=== PATIENT | female | born 1945 | race Caucasian/White ===

== ENCOUNTER 2016-09-23 05:20 | Observation (INO) | payer MEDICARE ==
[2016-09-18 14:57] LABS: BASOPHILS 0.2 %; BASOPHILS ABSOLUTE 0.01 10/3/uL (0.0-0.16); EOSINOPHILS 0.9 %; EOSINOPHILS ABSOLUTE 0.06 10/3/uL (0.0-0.53); HEMOGLOBIN 10.9 g/dL (12.0-16.0); IMMATURE GRANULOCYTES 0.2 %; IMMATURE GRANULOCYTES ABSOLUTE 0.01 10/3/uL (0.0-0.11); LYMPHOCYTES 28.1 %; LYMPHOCYTES ABSOLUTE 1.81 10/3/uL (0.67-4.30); MEAN CORPUS HGB CONC 31.2 g/dL (32.0-36.0); MEAN PLATELET VOLUME 9.4 fL (9.2-13.0); MONOCYTES 11.3 %; MONOCYTES ABSOLUTE 0.73 10/3/uL (0.21-1.20); NEUTROPHILS 59.3 %; NEUTROPHILS ABSOLUTE 3.82 10/3/uL (2.02-8.40); RBC DISTRIBUTION WIDTH 15.5 % (12.0-16.0); RED CELL COUNT 4.73 10/6/uL (4.0-5.6); WHITE BLOOD CELLS 6.4 10/3/uL (4.5-10.5)
[2016-09-18 14:59] LABS: HEMATOCRIT 34.9 % (36.0-48.0)
[2016-09-18 15:00] LABS: MANUAL DIFF NO %; MEAN CORPUSCULAR VOLUME 73.8 fL (80-100); PLATELET COUNT 346 10/3/uL (150-400)
[2016-09-18 15:14] LABS: BUN (BLOOD UREA NITROGEN) 9 MG/DL (6-23); CALCIUM, SERUM 9.6 MG/DL (8.5-10.4); CHLORIDE, SERUM 103 MMOL/L (96-112); CO2 (CARBON DIOXIDE) 29 MMOL/L (24-34); CREATININE 0.95 MG/DL (0.55-1.02); GFR AFRICAN AMERICAN 71 ML/MIN (>=60); GFR NON AFRICAN AMERICAN 61 ML/MIN (>=60); GLUCOSE, SERUM 98 MG/DL (60-99); SGOT(AST) 16 U/L (5-40); SGPT(ALT) 24 U/L (5-65); SODIUM, SERUM 137 MMOL/L (135-148)
[2016-09-18 15:16] LABS: A/G RATIO 1.2 (0.7-1.9); ALBUMIN 3.8 G/DL (3.5-5.0); ALKALINE PHOSPHATASE 106 U/L (45-117); GLOBULIN 3.2 G/DL (2.5-4.1); POTASSIUM, SERUM 4.7 MMOL/L (3.5-5.3); TOTAL BILIRUBIN 0.4 MG/DL (0-1.2)
--- NOTE | ~2016-09-23 | OP ---
Record Of Operation [facility] [address] [place]. [address] NAME: DANIEL RODRIGUEZ : 49 STATUS : ADM Adeel PAT#: [id number] AGE: 71 ADM/REG DATE : 09/23/16 MR#: [id number] REPORT SERV DATE: 09/23/16 DICTATED BY: PARMINDER PRIDE DATE: 09/23/16 REPORT STATUS : Draft TRANSCRIBED BY: MODSwati DATE: 09/23/16 DATE OF PROCEDURE: 09/23/2016 PREOPERATIVE DIAGNOSIS: Graves disease with massive goiter bilaterally. POSTOPERATIVE DIAGNOSIS: Graves disease with massive goiter bilaterally. PROCEDURE: Total thyroidectomy. SURGEON: Parminder Pride M.D. ANESTHESIA: General. ESTIMATED BLOOD LOSS: 20 mL. DETAILS OF PROCEDURE: The patient arrived in the operating suite and was placed on the table in supine position. General anesthesia was obtained via an endotracheal tube. The patient was appropriately positioned. Neck and upper chest were prepped and draped in a sterile manner. A cervical collar incision was performed. Subplatysmal flaps were elevated with blunt dissection and cautery. Strap muscles were split in the midline. A plane of dissection was created between the right thyroid lobe which was very large, extending far posteriorly to the overlying strap muscles. Middle thyroid vein was divided with the LigaSure. The superior pole vessels were isolated and divided with the LigaSure between clips with care to avoid injury to the external branch of the superior laryngeal nerve. The inferior thyroid veins anteriorly were divided with the LigaSure allowing the right lobe to be delivered into the operative field. The inferior parathyroid and the superior parathyroid were carefully protected maintaining dissection anteromedial to the blood supply. The recurrent nerve was identified, and dissection was maintained very meticulously anterior to the course of the recurrent nerve dividing small vessels between clips and silk ties allowing the right lobe to be rotated well anteromedial to the course of the nerve where it was then divided from the pretracheal fascia with LigaSure. The isthmus was transected with the same. The specimen was sent for permanent histology. Parathyroids were viable. Hemostasis was excellent. Attention was turned to the left, which was mobilized similarly. Again, the left lobe was massive in size. Dissection was maintained anteromedial to the course of the recurrent nerve, which was clearly identified. The inferior parathyroid was not seen. The superior parathyroid was protected maintaining its blood supply, and dissection was maintained well anteromedial to this. Vessels were divided with the LigaSure in between silk ties and clips, and once the left lobe was rotated well anteromedial to the course of the nerve, it was divided from the pretracheal fascia with the LigaSure. The specimen was then sent for permanent histology. The wound was irrigated. Surgicel was placed in tracheoesophageal groove bilaterally. Strap muscle was approximated with 3-0 Vicryl and platysma with 4-0 Vicryl. Skin closure with subcuticular 5-0 Monocryl. Sterile dressing was applied, and the patient was awakened, extubated, and taken to the PACU. Record Of Operation [address] [place]. [address] NAME: DANIEL RODRIGUEZ : 49 STATUS : ADM Adeel PAT#: [id number] AGE: 71 ADM/REG DATE : 09/23/16 MR#: [id number] REPORT SERV DATE: 09/23/16 DICTATED BY: PARMINDER PRIDE DATE: 09/23/16 REPORT STATUS : Draft TRANSCRIBED BY: ANSHUL DATE: 09/23/16 /ANSHUL Parminder Pride M.D. / [id number] CC: Dixon Landa M.D.
[~2016-09-23 05:20] MED LIST: ACIDOPHILU2 PO; ASAB PO; ASABAYER PO; AVAPRO300 MG PO; CALTRA600D PO; CARD120 PO; COZ50 PO; COZAAR100 MG PO; DETROLLA2 PO; ELIQUIS 5 MG TAB5 MG PO; FLAXSEED OIL1000 MG PO; FLEXERIL5 MG PO; FLEXI JOIN1 PO; GARLIFE PO; KDUR20 PO; LOP50 PO; LOSARTAN PO; MAGOX4 PO; MEVACOR PO; MEVACOR40 MG PO; MOBIC15 MG PO; MULTIVIT/MIN PO; NORCO1 TAB PO; NORV25 PO; OCEAN NAS; OS500+D PO; PRILO PO; PROZAC PO; TAPAZOLE10 MG PO; VITC500 PO; XARELTO20 MG PO
[2016-09-24] MEDS ORDERED: PCET PO (08:09)
[2016-09-24] MEDS ORDERED: SYN.15 PO (08:10)
== END 2016-09-24 14:09 | disposition home or self-care (01) ==
LOC: SDC 05:20 → 4SO 10:54
PROVIDERS: Specialist
PROC: 0GTK0ZZ Resection of Thyroid Gland, Open Approach (ICD-10-PCS; principal; 2016-09-23 06:45)
DX: E04.9 Nontoxic goiter, unspecified (principal); E05.00 Thyrotoxicosis with diffuse goiter without thyrotoxic crisis or storm; E03.9 Hypothyroidism, unspecified; I10 Essential (primary) hypertension; I48.91 Unspecified atrial fibrillation; E78.5 Hyperlipidemia, unspecified; E78.00 Pure hypercholesterolemia, unspecified; Z86.73 Personal history of transient ischemic attack (TIA), and cerebral infarction without residual deficits; F32.9 Major depressive disorder, single episode, unspecified; H91.90 Unspecified hearing loss, unspecified ear; K21.9 Gastro-esophageal reflux disease without esophagitis; M19.90 Unspecified osteoarthritis, unspecified site; Z88.1 Allergy status to other antibiotic agents; Z88.6 Allergy status to analgesic agent; Z90.89 Acquired absence of other organs; Z90.710 Acquired absence of both cervix and uterus; Z98.51 Tubal ligation status; Z79.82 Long term (current) use of aspirin; Z79.1 Long term (current) use of non-steroidal anti-inflammatories (NSAID); Z79.899 Other long term (current) drug therapy; Z98.890 Other specified postprocedural states
CPT/HCPCS: 80053; 82310; 85025; 88307; 88342; 93005; A9270-GY; C1769; G0378; J0690; J2370; J2405; J2710; J3010